=== PATIENT | female | born 1990 ===

== ENCOUNTER 2016-11-18 20:36 | Inpatient (IN) | payer MEDICAID, OTHER ==
[2016-11-18 21:03] VITALS: BMI 34.8
--- NOTE | 2016-11-18 21:06 | OBHP ---
Datetime: 11/18/2016 20:57 IP Adm Impression: Term, intrauterine ; No Active Labor; Intact Membranes IP Admit Plan: Admit to unit; Initiate labor induction protocol Admit Comment, IP Provider: 41 weeks Gestation, Not in Labor. Reassuring Status. Admit for Lab or Induction. Pelvic Type - PN: Adequate Extremities - PN: Normal Abdomen - PN: Normal Back - PN: Normal Breast - PN: Not Done Lungs - PN: Normal Heart - PN: Normal Thyroid - PN: Not Done Neurologic - PN: Not Done HEENT - PN: Not Done General - PN: Normal Weight - Estimated: 3600 Presentation-Admit: Vertex FHR - Baseline A Provider: 150 Membranes, Provider: Intact Contraction Comments Provider: Q 6min. Gestation - Est Wks by US: 41.0 Vital Signs Provider: Reviewed; Within Normal Limits IP Chief Complaint: Uterine contractions NICHD Variability Prov Fetus A: Moderate 6-25bpm NICHD Accel Fetus A IP Provider: 15X15 FHR Category Provider Fetus A: Category I NICHD Decel Fetus A IP Provider: None Dilatation, Provider: 0 Effacement, Provider: 30 Station, Provider: -3 Genitourinary Exam: Normal DTRs - PN: Normal
--- NOTE | 2016-11-18 21:09 | OBADHP ---
Datetime: 11/18/2016 20:57 IP Chief Complaint Other: 26 year old at 41 weeks Gestation complains of painful uterine contra ctions Admit Comment, IP Provider: 41 weeks Gestation, Not in Labor. Reassuring Status. Admit for Lab or Induction. Addendum: H_P unchanged from SHY> Pelvic Type - PN: Adequate Extremities - PN: Normal Abdomen - PN: Normal Back - PN: Normal Breast - PN: Not Done Lungs - PN: Normal Heart - PN: Normal Thyroid - PN: Not Done Neurologic - PN: Not Done HEENT - PN: Not Done General - PN: Normal Weight - Estimated: 3600 Presentation-Admit: Vertex FHR - Baseline A Provider: 150 Membranes, Provider: Intact Contraction Comments Provider: Q 6min. Gestation - Est Wks by US: 41.0 Vital Signs Provider: Reviewed; Within Normal Limits IP Chief Complaint: Uterine contractions NICHD Variability Prov Fetus A: Moderate 6-25bpm NICHD Accel Fetus A IP Provider: 15X15 FHR Category Provider Fetus A: Category I NICHD Decel Fetus A IP Provider: None Dilatation, Provider: 0 Effacement, Provider: 30 Station, Provider: -3 Genitourinary Exam: Normal DTRs - PN: Normal IP Adm Impression: Term, intrauterine ; No Active Labor; Intact Membranes IP Admit Plan: Admit to unit; Initiate labor induction protocol
[2016-11-18] MEDS: Lactated Ringer's 1,000 ML IV SCH (21:17)
[2016-11-18 22:11] LABS: BASO % 0.5 % (0.0-2.0); EOS # 0.1 K/uL (0.0-0.7); EOS % 0.8 % (0.0-4.0); HEMATOCRIT 36.5 % (34.0-47.0); LYMPH # 1.9 K/uL (1.0-4.3); LYMPH % 20.6 % (20.0-40.0); MEAN CELL VOLUME 84.4 fL (81.0-99.0); MEAN CORPUSCULAR HEMOGLOBIN 27.4 pg (27.0-31.0); MEAN CORPUSCULAR HGB CONC 32.5 g/dL (33.0-37.0); MEAN PLATELET VOLUME 9.3 fL (7.2-11.7); MONO # 0.8 K/uL (0.0-0.8); MONO % 8.2 % (0.0-10.0); NRBC % 0.1 % (0.0-2.0); RED CELL DISTRIBUTION WIDTH 18.5 % (11.5-14.5); WHITE BLOOD COUNT 9.2 K/uL (4.8-10.8)
[2016-11-18 22:28] LABS: RBC URINE 4 /hpf (0-3); URINE BACTERIA OCC (<OCC); URINE BILIRUBIN NEGATIVE (NEGATIVE); URINE BLOOD 1+ (NEGATIVE); URINE CALCIUM OXALATE CRYSTALS FEW /hpf (<OCC); URINE COLOR Yellow (YELLOW); URINE GLUCOSE (UA) NORMAL (Normal); URINE KETONE NEGATIVE (NEGATIVE); URINE PROTEIN NEGATIVE (NEGATIVE); URINE UROBILINOGEN NORMAL mg/dL (0.2-1.0); WBC URINE 2 /hpf (0-5)
[2016-11-18 22:29] LABS: GFR AFRICAN-AMERICAN > 60; GLUCOSE,RANDOM 69 mg/dL (65-105)
[2016-11-18 22:51] LABS: URINE LEUKOCYTE ESTERASE NEGATIVE Leu/uL (Negative)
[2016-11-19] MEDS ORDERED: Nalbuphine 20 mg/ml Inj (1 ml) ONE (03:41)
[2016-11-19] MEDS ORDERED: Nalbuphine 20 mg/ml Inj (1 ml) IVP PRN (03:45)
--- NOTE | 2016-11-19 07:07 | OBPN ---
Datetime: 11/19/2016 07:01 IP Progress Impression: Normal progression of labor; Reassuring heart rate IP Informed Consent Obtain: Vaginal Delivery; Risks, Benefits and Alternatives Discussed IP Procedures: Sterile Vag Exam IP Progress Plan: Continue present management; Augmentation; Anticipate Vaginal Delivery Membranes, Provider: Ruptured Amniotic Fluid Color, Provider: Meconium, Light Contraction Comments Provider: Q 2min. FHR - Baseline A Provider: 140 Gestation - Est Wks by US: 39.0 Weight - Estimated: 3300 Presentation-Admit: Vertex IP Progress Note Comment: Reassuring Status. Active Labor. Anticipate Vital Signs Provider: Reviewed; Within Normal Limits FHR Category Provider Fetus A: Category I NICHD Variability Prov Fetus A: Moderate 6-25bpm Dilatation, Provider: 4 Effacement, Provider: 100 Station, Provider: 0 NICHD Decel Fetus A IP Provider: None Datetime: 11/18/2016 20:57 NICHD Accel Fetus A IP Provider: 15X15
[2016-11-19] MEDS ORDERED: Sodium Citrate/Citric Acid 15 ml Sol ONE (08:03)
[2016-11-19] MEDS ORDERED: cefOXitin IV 2 gm in Dextrose 2 GM/50 ML BAG IVPB ONE (08:05)
[2016-11-19] MEDS ORDERED: Oxytocin 20 units in LR 2,000 ML IV ONE (08:13)
[2016-11-19] MEDS: cefOXitin IV 2 gm in Dextrose 2 GM/50 ML BAG IVPB SCH ×2 (08:15→18:03)
[2016-11-19] MEDS ORDERED: ePHEDrine 50 mg/ml Inj ONE (08:17)
[2016-11-19] MEDS ORDERED: Morphine 4 MG/ML VIAL ONE (08:17)
[2016-11-19] MEDS ORDERED: Morphine 1 mg/ml preservative-free Inj(Duramorph) ONE (08:18)
--- NOTE | 2016-11-19 08:18 | OBPN ---
Datetime: 11/19/2016 08:10 IP Procedures Other: breech IP Progress Impression: Reassuring heart rate IP Progress Plan: Deliver- Section Contraction Comments Provider: every 2 min; irregular Presentation-Admit: Breech Vital Signs Provider: Reviewed; Within Normal Limits FHR Category Provider Fetus A: Category I Dilatation, Provider: 4 Datetime: 11/19/2016 07:01 IP Progress Note Comment: Reassuring Status. Active Labor. Anticipate . Addendum: Note written on wrong patient.
[2016-11-19] MEDS ORDERED: Oxycodone/Acetaminophen 5/325 mg Tab PO PRN ×2 (09:25)
--- NOTE | 2016-11-19 09:27 | OBDS ---
DELIVERY PERSONNEL Delivery Doctor: Hortensia Murray MD Scrub Nurse: Karoline Cross Banquet Director: Fifi Farmer RN Anesthesiologist: DR jimenez Resident: Dr Acosta MATERNAL INFORMATION Delivery Anesthesia: Spinal Medications in Delivery: pitocin methergine Placenta Cultured: No Maternal Complications: Other Other Maternal Complications: srom with thick meconium RN Comments: baby boy delivered via primary csection. apgars 9/9. baby attended to by dr Perez Provider Comments: csection done for breech presentation at 41 wga ebl 800cc apgars 9/9 at1 and 5 min of life LABOR SUMMARY EDC: 11/12/2016 00:00 No. Babies in Womb: 1 Attempted: No Labor Anesthesia: None LABOR INFORMATION Reason for Induction: Postterm Onset of Labor: 11/19/2016 03:30 Cervical Ripening Agents: Cervidil (Annotations: INSERTED BY DR. CASSIDY) Group B Beta Strep: Negative MEMBRANES Membranes Rupture Method: Spontaneous Rupture of Membranes: 11/19/2016 07:42 Length of Rupture (hrs): 0.97 Amniotic Fluid Color: Heavy Meconium Amniotic Fluid Amount: Small Amniotic Fluid Odor: Normal STAGES OF LABOR Stage 3 hrs: 0 Stage 3 min: 1 Total Time in Labor hrs: 5 Total Time in Labor min: 11 CSECTION DELIVERY Primary Indication: Breech Presentation CSection Urgency: Emergency CSection Incidence: Primary Labor: Labor CSection Incision: Lower Uterine Transverse Uterine Closure: Double-layer closure BABY A INFORMATION Delivery Date/Time: 11/19/2016 08:40 Method of Delivery: Born in Route : No : N/A Forceps: N/A Vacuum Extraction: N/A Shoulder Dystocia : No SHOULDER DYSTOCIA BABY A Infant Delivery Date/Time: 11/19/2016 08:40 PRESENTATION/POSITION BABY A Presentation: Breech Cephalic Presentation: N/A Breech Presentation: Michael PLACENTA INFORMATION BABY A Placenta Delivery Time : 11/19/2016 08:41 Placenta Method of Delivery: Manual Removal Placenta Status: Delivered SCORES BABY A Heart Rate 1 min: >100 bpm Resp Effort 1 min: Good Cry Reflex Irritability 1 min: Cough or Sneeze or Pulls Away Muscle Tone 1 min: Active Motion Color 1 min: Body [place], Extremities Blue Resuscitation Effort 1 min: N/A SCORE 1 MIN: 9 Heart Rate 5 min: >100 bpm Resp Effort 5 min: Good Cry Reflex Irritability 5 min: Cough or Sneeze or Pulls Away Muscle Tone 5 min: Active Motion Color 5 min: Body [place], Extremities Blue Resuscitation Effort 5 min: N/A SCORE 5 MIN: 9 INFANT INFORMATION BABY A Gestational Age at Delivery: 41.0 Gestational Status: Term Infant Outcome : Liveborn Infant Condition : Stable Sex: Male IDENTIFICATION/MEDS BABY A ID Band Number: [id number] ID Band Location: Left Leg; Left Arm Sensor Number: [id number] Sensor Location : Cord Clamp WEIGHT/LENGTH BABY A Infant Birthweight (gms): 3740 Infant Weight (lb): 8 Infant Weight (oz): 4 Infant Length Inches: 20.00 Infant Length cms: 50.8 CORD INFORMATION BABY A No. Cord Vessels: 3 Nuchal Cord : N/A Nuchal Cord Other: 0 True Knot: 0 Infant Suction: Mouth; Nose ASSESSMENT BABY A Complications: Meconium Physical Findings at Delivery: Within Normal Limits Respirations: Appears Normal It Support Specialist/ALS Called : Yes Care By: DR Perez Transferred To: Remains with Mother
[2016-11-19] MEDS: Simethicone 80 mg Chewtab PO SCH ×4 (16:31→23:02)
[2016-11-19] MEDS: Lactated Ringer's 1,000 ML IV SCH (18:04)
[2016-11-20] MEDS: cefOXitin IV 2 gm in Dextrose 2 GM/50 ML BAG IVPB SCH ×2 (01:38→09:19)
[2016-11-20] MEDS: Lactated Ringer's 1,000 ML IV SCH (01:41)
[2016-11-20 10:46] LABS: BASO # 0.1 K/uL (0.0-0.2); BASO % 0.6 % (0.0-2.0); EOS % 0.4 % (0.0-4.0); HEMATOCRIT 31.3 % (34.0-47.0); LYMPH # 1.4 K/uL (1.0-4.3); LYMPH % 11.1 % (20.0-40.0); MEAN CELL VOLUME 84.6 fL (81.0-99.0); MEAN CORPUSCULAR HEMOGLOBIN 27.4 pg (27.0-31.0); MEAN CORPUSCULAR HGB CONC 32.4 g/dL (33.0-37.0); MEAN PLATELET VOLUME 8.8 fL (7.2-11.7); MONO # 0.6 K/uL (0.0-0.8); MONO % 4.5 % (0.0-10.0); RED CELL DISTRIBUTION WIDTH 19.2 % (11.5-14.5); WHITE BLOOD COUNT 12.2 K/uL (4.8-10.8)
[2016-11-20] MEDS: Simethicone 80 mg Chewtab PO SCH ×3 (13:13→21:29)
--- NOTE | 2016-11-20 16:32 | OBPPN ---
Datetime: 11/20/2016 16:16 PP Pain Prov: Within normal limits PP Nausea Prov: Denies PP Flatus Prov: No PP BM Prov: No PP Breasts Prov: Normal PP Heart Prov: Normal PP Lungs Prov: Normal PP Abdomen/Uterus Prov: Normal PP Lochia Prov: Normal PP Vulva/Perineum Prov: Not Done PP CVA Tenderness Prov: Normal PP Extremities Prov: Normal PP C/S Incision Prov: Normal PP Progress Prov: Normal PP Comments Phys Exam Prov: Skin: warm, dry, intact Breasts: no cracked nipples Abdomen: incision with subcuticular closure - clean, dry, intact. Fundus firm, mobile, mild and ap propriately tender, 1 FB above umbilicus. Moderate lochia rubra All other systems reviewed and are negative PP Impression Prov: Normal progression PP Plan Prov: Continue present management PP Progress Note Prov: Patient seen and evaluated at approximately 0840 hours; received in bed, room 452. Reports incisional pain, 5/10 - desires pain medications. Not yet OOB to ambulate or void. Jasiel es nausea/vomiting after clears. exclusively P.E.: as above. Mild obese, in NAD. Awake, alert, oriented to time, person and place. FOB sleeping - POD#1 H/H 10.2/31.3 Assessment: POD#1 26 yo P1, S/P primary for Breech presentation. Afebrile, vital signs s table. Anemia noted; asymptomatic and hemodynamically stable. Clinically stable. Plan: 1) Start iron, TID 2) Advance to regular diet 3) OOB and ambulate 4) Continue present management
--- NOTE | 2016-11-21 09:04 | OBPPN ---
Datetime: 11/21/2016 08:57 PP Pain Prov: Within normal limits PP Nausea Prov: Denies PP Flatus Prov: Yes PP BM Prov: No PP Breasts Prov: Normal PP Heart Prov: Normal PP Lungs Prov: Normal PP Abdomen/Uterus Prov: Normal PP Lochia Prov: Normal PP Vulva/Perineum Prov: Not Done PP CVA Tenderness Prov: Normal PP Extremities Prov: Normal PP C/S Incision Prov: Normal PP Progress Prov: Normal PP Comments Phys Exam Prov: Skin: warm, dry, intact Abdomen: Obese. Soft. (+) ABS. Incision with subcuticular closure - clean, dry and intact. Mild lo manuelito rubra Extremities: nocalf tenderness All other systems reviewed and are negative PP Impression Prov: Normal progression PP Progress Note Prov: Patient received in [facility], room 452. exclusively. Reports incisio nal pain, pain scalae /; has not requested pain meds since taking motrin 11/20/16. Denies nausea, v omiting. Ambulating and voiding without difficulty. Denies dizziness, palpitations P.E.: as above. Awake, alert, oriented to time, person and place. Pleasant and cooperative Assessment: POD#2 26 yo P1, S/P primary for Breech presentation. Afebrile, vital signs s table. Returning GI and functions. Anemia noted; asymptomatic. Clinically stable. Plan: 1) Continue present management 2) Anticipate discharge home 11/22/16 Vital Signs Provider PP: Reviewed; Within Normal Limits
[2016-11-21] MEDS: Simethicone 80 mg Chewtab PO SCH ×4 (09:25→21:41)
--- NOTE | 2016-11-22 07:27 | OP ---
PROCEDURE DATE: 11/19/2016 PREOPERATIVE DIAGNOSIS: Breech presentation in labor. POSTOPERATIVE DIAGNOSIS: Breech presentation in labor. PROCEDURE PERFORMED: Primary low transverse section. SURGEON: Harry Murray MD PROFESSOR OF GEOGRAPHY: Dawna Minor MD. Please note that the procedure required a surgical coordinator to assist with the entry into the abdominal cavity, to assist with the dissection, to assist with the delivery of the and to assist with the closure of the abdominal cavity. The hand frame surgical elastic knitter was present and scrubbed for the entire duration of the procedure. ANESTHESIA: Spinal. ANESTHESIOLOGIST: Dr. Vale. COMPLICATIONS: None. ESTIMATED BLOOD LOSS: 800 mL FINDINGS: A male in debbie breech presentation with Apgars of 9 at one minute and 9 at 5 minutes of life. Normal uterus, tubes, and ovaries bilaterally. SPECIMEN: Placenta and cord blood for cord pH. PROCEDURE IN DETAIL: After informed consent was obtained, the patient was taken to the operating room and spinal anesthesia was administered and she was thereafter placed in the dorsal supine position with a leftward tilt. A Shah catheter was placed transurethrally using sterile precautions. She was then prepped and draped in the usual sterile manner. The Pfannenstiel skin incision was then made with the scalpel and carried down to the underlying layer of the fascia with the help of Bovie. The fascia was then incised in the midline and the incision extended laterally with the help of electrocautery. The superior aspect of the fascial incision was then grasped with Krystyna clamps, elevated, and the underlying rectus muscles dissected off. Attention was then turned to the inferior aspect of the fascial incision, which in a similar fashion was grasped with Krystyna clamps, elevated, and the underlying rectus muscles dissected off. The rectus muscle was in the midline, the peritoneum was entered bluntly. The peritoneal incision was extended superiorly and inferiorly with good visualization of bladder. The bladder blade was then inserted and the vesicouterine peritoneum identified. A transverse incision was made over the vesicouterine peritoneum with the help of the fresh scalpel. The hysterotomy was thereafter bluntly stretched. The infant was then delivered from a debbie breech presentation with left sacrum anterior. The buttock along with the feet was delivered followed by the delivery of the body and the arms and the head by flexing the head. The cord was then clamped and cut and the infant was handed over to the waiting pediatricians. The cord blood was collected and the placenta was then manually removed and the uterus was exteriorized and cleared of all clots and debris. The uterine incision was repaired with 0 Polysorb in a running-locked fashion. A second layer of same suture was used to imbricate the first layer and also to obtain hemostasis. Adequate hemostasis was noted from the uterine incision repair site. The gutters and the cul-de-sac were irrigated and suctioned. The uterus was thereafter returned to the patient's abdomen and the hysterorrhaphy was inspected for hemostasis and adequate hemostasis was noted. The bladder flap was inspected for hemostasis and adequate hemostasis was noted from it. The peritoneum was thereafter closed with 2-0 Polysorb in a running-locked fashion. The muscle layer was also reapproximated with 2-0 Polysorb in a running fashion. The fascia was closed with 0 Vicryl in a running fashion. The subcutaneous tissue was reapproximated with 2-0 Polysorb in a running fashion. The skin was thereafter closed with 3-0 Monocryl in a subcuticular manner. The sponge, lap, needle, and instrument count was correct x 3 as reported to me at the end of the procedure. The patient was thereafter cleaned and taken to the recovery room in stable condition. The specimens were sent to pathology. Harry Murray MD cc: [id number] TT: 11/20/2016 09:13:53 adiel JAIN
--- NOTE | 2016-11-22 07:28 | OBDCSUM ---
Datetime: 11/22/2016 07:27 Discharged to, Provider: Home Follow up at, Provider: 2week Disch Instr Activity: Normal activity Disch Instr Diet: Regular Discharge Diagnosis, Provider: Term Delivered Follow up in weeks, Provider: clinic Disch Activity Restrictions: No exercising; No lifting; No driving; Minimize walking; Minimize stair -climbing; No sexual activity; Nothing in vagina - [place], tampons, douche Discharge Comment, Provider: dc home no sex percocet prn f/u in 2week Discharge Diagnosis Prov Other: s/p c/s
--- NOTE | 2016-11-22 07:28 | OBPPN ---
Datetime: 11/22/2016 07:25 PP Pain Prov: Within normal limits PP Nausea Prov: Denies PP Flatus Prov: Yes PP Abdomen/Uterus Prov: Normal PP Lochia Prov: Normal PP Extremities Prov: Normal PP C/S Incision Prov: Normal PP Comments Phys Exam Prov: fudus below umblicus ext mild edema,no calf ten incision clean and dry PP Impression Prov: Normal progression PP Plan Prov: Discharge PP Progress Note Prov: pt was seen at bed side, pain unsder control, no n/v, tolerasting deit,voidin g,min lochia,flatus+ pod#3 s/p c/s dc home no sex percocet prn f/u in 2week Vital Signs Provider PP: Reviewed; Within Normal Limits
[2016-11-22 08:33] VITALS: BP 109/69; PULSE 80; RESP 18; TEMP 98.1; O2SAT 99
[2016-11-22] MEDS: Simethicone 80 mg Chewtab PO SCH (10:29)
--- NOTE | 2016-11-22 11:16 | PCM.PSYCH ---
Initial Psychiatric Evaluation - Initial Psychiatric Evaluation Type of Admission: Voluntary Legal Status: Capacity Chief Complaint (in patient's own words): I have been feeling sad for the last 7 days History of Present Illness and Precipitating Events: 26 y/o female with a history of depression, no significant past medical history, complaining of feeling depressed, who just delivered a baby, was consulted on OB floor because of h/o depression. Pt says she started feeling depressed 7 days prior labor. Patient says that this was an unplanned and she found out 5 months into her . Patient is from the father who lives in [place]. She is concerned that the child will grow up without the father. Patient is planning to stay with her sister. Patient had 2 sexual partners in the past year and admits that she in unsure who the real father is however she desires to find out. Pt appears sad and tearful. She reports loss of interest, feelings of guilt and a lack of energy. She denies wanting to hurt self or her child. Denies auditory or visual hallucinations or persecutory delusions. Current Medications: Active Medications Generic Name Dose Route Start Last Admin Trade Name Freq PRN Reason Stop Dose Admin Docusate Sodium 100 mg 11/19/16 10:00 11/22/16 10:29 Colace PO 100 mg BID MALICK Administration Ferrous Sulfate 325 mg 11/19/16 10:00 11/22/16 10:29 Feosol PO 325 mg DAILY MALICK Administration Cefoxitin Sodium 2 gm in 50 mls @ 50 mls/hr 11/19/16 10:00 11/20/16 09:19 Mefoxin Iv 2 Gm Duplex IVPB 50 mls/hr Q8H MALICK Administration Ibuprofen 600 mg 11/20/16 09:25 11/22/16 10:31 Motrin Tab PO 600 mg Q4 PRN Administration Pain, Mild (1-3) Simethicone 80 mg 11/19/16 10:00 11/22/16 10:29 Mylicon Chew Tab PO 80 mg QID MALICK Administration Past Psychiatric History - Past Psychiatric History Previous Treatment History: None Pertinent Medical Hx (Current Medical&Sleep Prob, Allergies): Allergies Allergy/AdvReac Type Severity Reaction Status Date / Time No Known Allergies Allergy Verified 11/18/16 20:57 Ibuprofen [Motrin Tab] 600 mg PO Q4 PRN tab 11/22/16 Multivit/Folic Acid/I [ Plus] 1 tab PO DAILY #30 tab 11/22/16 oxyCODONE/Acetaminophen [Percocet 5/325 mg Tab] 1 tab PO Q4H PRN #15 tab Review of Systems - Review of Systems All systems: reviewed and no additional remarkable complaints except Mental Status Examination - Personal Presentation Personal Presentation: Looks stated age - Affect Affect: Constricted, Depressed - Motor Activity Motor Activity: Calm - Reliability in Providing Information Reliability in Providing Information: Good - Speech Speech: Organized - Mood Mood: Depressed - Formal Thought Process Formal Thought Process: No Impairment - Obsessions/Compulsions Obsessions: No Compulsions: No - Cognitive Functions Orientation: Person, Place, Situation, Time Sensorium: Alert Attention/Concentration: Attentive Abstract Thinking: [place] Estimate of Intelligence: Below average Judgement: Imparied, as evidence by: Poor judgement, Intact, as evidence by: Insight regarding need for hospitalization - Risk Risk: Diminished functioning - Strength & Assets Inventory Strength & Assets Inventory: Cooperative DSM 5 DX - DSM 5 DSM 5 Diagnosis: Post Depression R/O Major depressive disorder recurrent moderate - Recommended/Plan of Treatment Treatment Recommendations and Plan of Treatment: Post Depression R/O Major depressive disorder recurrent moderate CBT Psychoeducation Supportive therapy, group therapy, individual therapy Zoloft 50 mg PO daily
== END 2016-11-22 15:35 | disposition home or self-care (01) | DRG 370 ==
LOC: C.EROB 20:36 → C.4D 20:58 → UNDOADMIN 20:58 → C.4D 21:13 → C.4M 11-19 12:00
PROVIDERS: ADMIT Obstetrics & Gynecology; ATTEND Obstetrics & Gynecology
PROC: 10D00Z1 Extraction of Products of Conception, Low, Open Approach (ICD-10-PCS; principal; 2016-11-19)
PROC: 3E0P7GC Introduction of Other Therapeutic Substance into Female Reproductive, Via Natural or Artificial Opening (ICD-10-PCS; 2016-11-19)
DX: O32.1XX0 Maternal care for breech presentation, not applicable or unspecified (principal); O90.81 Anemia of the puerperium; O48.0 Post-term pregnancy; O77.0 Labor and delivery complicated by meconium in amniotic fluid; Z3A.41 41 weeks gestation of pregnancy